=== PATIENT | female | born 2000 | race American Indian/Alaskan Native ===

== ENCOUNTER 2021-06-03 17:50 | Emergency (ER) | payer SELFPAY | END 2021-06-03 21:07 | disposition left against medical advice (07) | LOC: ED 17:50 | DX: J02.9 Acute pharyngitis, unspecified (principal); Z53.21 Procedure and treatment not carried out due to patient leaving prior to being seen by health care provider ==

== ENCOUNTER 2021-06-04 18:18 | Emergency (ER) | payer SELFPAY | END 2021-06-05 09:29 | disposition left against medical advice (07) | LOC: ED 18:18 | DX: Z00.00 Encounter for general adult medical examination without abnormal findings (principal); Z53.21 Procedure and treatment not carried out due to patient leaving prior to being seen by health care provider ==